=== PATIENT | female | born 1945 ===

== ENCOUNTER → 2016-09-17 | Outpatient (CLI) | payer MEDICARE, OTHER | END | disposition disaster alternative care site (69) | LOC: GBCOE 12:14 | DX: Z12.31 Encounter for screening mammogram for malignant neoplasm of breast (principal); Z91.89 Other specified personal risk factors, not elsewhere classified | CPT/HCPCS: G0202 ==

== ENCOUNTER → 2016-09-22 | Outpatient (CLI) | payer MEDICARE, OTHER | LOC: LFPA 14:43 | DX: R10.9 Unspecified abdominal pain (principal) ==